=== PATIENT | male | born 1935 | race Caucasian/White ===

== ENCOUNTER 2017-04-02 12:04 | Emergency (ER) | payer MEDICARE, OTHER ==
[~2017-04-02] VITALS: Ht 182.9 cm; Wt 84.3 kg
[~2017-04-02 12:04] MED LIST: ATOR10 PO; FAMV250T PO; LORT5TAB PO; PRIL10CA PO; PROP65 PO
[2017-04-02 12:08] VITALS: BP 151/77; PULSE 80; RESP 16; TEMP 97.5; O2SAT 98
[2017-04-02] MEDS ORDERED: PANT20TA2 PO (12:19)
[2017-04-02] MEDS ORDERED: FEXO180T PO (12:19)
[2017-04-02] MEDS ORDERED: ROSU1TAB8 PO (12:19)
[2017-04-02] MEDS ORDERED: HYDR-3516 PO (12:19)
[2017-04-02] MEDS ORDERED: [UNRECOGNIZED DRUG - CODE] PO (12:19)
[2017-04-02] MEDS ORDERED: TRIA0.5O TOPICAL (12:53)
[2017-04-02] MEDS ORDERED: PRED20 PO (12:53)
--- NOTE | 2017-04-02 12:56 | PD ---
HPI Chief Complaint: Skin Problem Time Seen by Provider: 12:15 Travel History International Travel<30 days: No Contact w/Intl Traveler<30days: No Traveled to known affect area: No History of Present Illness HPI 82-year-old male presents to the emergency Department with generalized pruritic raised erythematous patchy rash. Denies specific exposure history of any kind. Patient denies recent illness. Patient denies fever, chills, or other symptoms. No pain. Just very itchy. No known drug allergies. No known food allergies. 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, MELANOMA FACE) Social History Alcohol Use: Yes (2-3 DRINKS PER WEEK) Tobacco Use: No Substance Use: No Allergies-Medications (Allergen,Severity, Reaction): Coded Allergies: No Known Allergies (Verified Adverse Reaction, Unknown, 04/02/17) Reported Meds & Prescriptions Reported Meds & Active Scripts Active Prednisone 20 Mg Tab 20 Mg PO DAILY 7 Days Triamcinolone Topical 0.5 % Oint 1 Applic TOPICAL TID Reported Hydrocodone-Acetaminophen 5-325 mg Tab 1 Tab PO Q6H PRN Oncovite (Multiple Vitamins W/ Minerals) 1 Tab Tab 1 Tab PO DAILY Fexofenadine (Fexofenadine HCl) 180 Mg Tab 180 Mg PO DAILY Pantoprazole (Pantoprazole Sodium) 20 Mg Tab 20 Mg PO DAILY Rosuvastatin (Rosuvastatin Calcium) 20 Mg Tab 20 Mg PO DAILY Review of Systems Except as stated in HPI: all other systems reviewed are Neg General / Constitutional: No: Fever, Chills Eyes: No: Visual changes HENT: No: Headaches Cardiovascular: No: Chest Pain or Discomfort Respiratory: No: Shortness of Breath Gastrointestinal: No: Abdominal Pain Genitourinary: No: Dysuria Musculoskeletal: No: Pain Skin: Positive Rash, Positive Itching, No Dryness, No Lumps, No Hives Neurologic: No: Weakness Psychiatric: No: Depression Endocrine: No: Polydipsia Hematologic/Lymphatic: No: Easy Bruising Physical Exam Narrative GENERAL: Patient is in no acute distress SKIN: Warm and dry. Normal color. Normal turgor. Somewhat atrophic. Patient has generalized patchy raised erythematous rash consistent with atopic dermatitis. There are no hives. HEAD: Atraumatic. Normocephalic. EYES: Pupils equal and round. No scleral icterus. No injection or drainage. ENT: No nasal bleeding or discharge. Mucous membranes pink and moist. Pharynx is clear. NECK: Trachea midline. Supple and nontender. CARDIOVASCULAR: Regular rate and rhythm. RESPIRATORY: No accessory muscle use. Clear to auscultation. Breath sounds equal bilaterally. MUSCULOSKELETAL: Extremities without clubbing, cyanosis, or edema. No obvious deformities. NEUROLOGICAL: Awake and alert. No obvious cranial nerve deficits. Motor grossly within normal limits. Five out of 5 muscle strength in the arms and legs. Normal speech. PSYCHIATRIC: Appropriate mood and affect; insight and judgment normal. Data Data Last Documented VS Vital Signs Date Time Temp Pulse Resp B/P (MAP) Pulse Ox O2 Delivery O2 Flow Rate FiO2 04/02/17 12:08 97.5 80 16 151/77 (101) 98 Orders Orders Ed Discharge Order (04/02/17 12:56) MDM Medical Decision Making Medical Screen Exam Complete: Yes Emergency Medical Condition: Yes Differential Diagnosis Pruritus. Eczema. Atopic dermatitis. Allergic reaction. Narrative Course Patient is felt to have an atopic dermatitis. Patient is treated with triamcinolone 0.5% ointment 3 times a day 30 g. Patient also given prednisone 20 mg daily for the next 7 days. Patient taking [id number] Benadryl as needed for itching. Recommend follow-up with local auto body customizer if symptoms continue or worsen as needed. Diagnosis Primary Impression: Atopic dermatitis, unspecified Qualified Codes: L20.9 - Atopic dermatitis, unspecified Referrals: [facility] as needed Patient Instructions: Acute Rash (ED), General Instructions Additional Instructions: Patient is felt to have an atopic dermatitis. Patient is treated with triamcinolone 0.5% ointment 3 times a day 30 g. Patient also given prednisone 20 mg daily for the next 7 days. Patient taking [id number] Benadryl as needed for itching. Recommend follow-up with local auto body customizer if symptoms continue or worsen as needed. Med/Other Pt SpecificInfo: Prescription(s) given Scripts Prednisone (Prednisone) 20 Mg Tab 20 MG PO DAILY for 7 Days, #7 TAB 0 Refills Prov: Calin Hughes MD 04/02/17 Triamcinolone Topical (Triamcinolone Topical) 0.5 % Oint 1 APPLIC TOPICAL TID for Inflammation, #30 GM 0 Refills Prov: Calin Hughes MD 04/02/17 Disposition: 01 DISCHARGE HOME Condition: Stable Manish Ortiz Apr 02, 2017 12:56
== END 2017-04-02 13:19 | disposition home or self-care (01) ==
LOC: PHEFT 12:04
DX: L20.9 Atopic dermatitis, unspecified (principal); E78.00 Pure hypercholesterolemia, unspecified
CPT/HCPCS: 99283